=== PATIENT | male | born 1970 | race Caucasian/White ===

== ENCOUNTER → 2016-12-27 | Outpatient (CLI) | payer MEDICARE, MEDICAID ==
[~2016-12-27] MED LIST: KEFLEX 500MG.500 MG PO; NEURONTIN 300M300 MG PO; PERCOCET 325 MG1 TA3 PO
--- NOTE | 2016-12-27 16:03 | RADIOLOGY REPORT PS360 ---
ORBIT HISTORY: History of metallic foreign body in the eyes. Clearance for MRI needed RULE OUT METAL FOREIGN BODY FOR MRI ORDERING PHYSICIAN: Reese Rosales MD PATIENT AGE: 46 years TECHNIQUE: AP views are obtained of the orbits with the patient looking up and down COMPARISON: None FINDINGS: No radio opaque foreign bodies evident. IMPRESSION: No radio opaque orbital foreign body identified
--- NOTE | 2016-12-28 08:22 | RADIOLOGY REPORT PS360 ---
MRI-C-SPINE W/O, MRI-3D RENDERING/MYELOGRAM HISTORY: Right-sided neck pain. Pain when tilting and turning head. Left upper extremity tingling in the digits third through fifth/radiculopathy , NECK PAIN ORDERING PHYSICIAN: Reese Rosales MD PATIENT AGE: 46 years COMPARISON: None TECHNIQUE: Standard multiplanar multiecho sequences are performed without contrast. 3-D MIP and myelographic images are also rendered and reviewed FINDINGS: Craniocervical junction has an unremarkable appearance. There is normal alignment. C2-C3: Unremarkable. C3-C4: Mild right-sided foraminal narrowing from uncovertebral and facet hypertrophy C4-C5: Unremarkable. C5-C6: There is mild disc desiccation with minimal bulging disc with narrowing of the canal measuring 9 mm. Mild left frontal narrowing from uncovertebral hypertrophy. C6-C7: Minimal bulging disc C7-T1: Unremarkable. No disc herniation. Unremarkable signal intensity of the cord. No significant cord flattening. IMPRESSION: 1. Mild degenerative disc disease with minimal bulging disc and canal narrowing at C5-C6 2. Mild right-sided foraminal narrowing at C3-C4 and mild left foraminal narrowing at C5-C6 from uncovertebral and facet hypertrophy. 3. No disc herniation apparent
--- NOTE | 2016-12-28 08:28 | RADIOLOGY REPORT PS360 ---
MRI-L-SPINE W/O HISTORY: Back pain, right foot tingling, left-sided low back pain rating down left leg, BACK PAIN, NECK PAIN ORDERING PHYSICIAN: Reese Rosales MD PATIENT AGE: 46 years COMPARISON: None TECHNIQUE: Standard multiplanar multiecho sequences are performed without contrast. 3-D MIP and myelographic images are also rendered and reviewed FINDINGS: Normal alignment. Spinal cord ends at the T12-L1 level. T12-L1 and L1-L2 have an unremarkable appearance. L2-L3 and L3-L4: Minimal disc desiccation and slight decrease in the disc height suggesting mild degenerative disc disease with mild facet and ligamentum flavum hypertrophic change.. L4-5: There is a small central disc protrusion very slightly eccentric toward the left. This is without neural impingement. Mild degenerative disc disease at this level with mild facet and ligamentum flavum hypertrophy. L5-S1: Degenerative disc disease with decrease in disc space and disc desiccation with minimal endplate hypertrophic change. No disc herniation or canal stenosis. Incidental note made of bilateral renal cortical cysts IMPRESSION: 1. Mild multilevel spondylosis of the lumbar spine as detailed at each level above. The degenerative disc disease is most severe at L5-S1. 2. Tiny central disc protrusion slightly eccentric to the left at L4-L5 without neural impingement.
== END ==
LOC: RAD 15:15
DX: M54.5 Low back pain (principal); M54.2 Cervicalgia

== ENCOUNTER → 2017-01-02 | Outpatient (CLI) | payer MEDICARE, MEDICAID ==
[2017-01-02 18:10] LABS: AMPHETAMINES/METAMPHETAMINES NEGATIVE ng/mL (<1000)
== END ==
LOC: LAB 17:20
PROVIDERS: Emergency Medicine
DX: Z79.899 Other long term (current) drug therapy (principal)